=== PATIENT | male | born 1945 | race Caucasian/White ===

== ENCOUNTER 2016-05-10 14:08 | Emergency (ER) | payer MEDICARE, BC ==
[2016-05-10] MEDS ORDERED: Aspirin Low Dose CHEW TAB* 81 MG PO ONE (14:38)
[2016-05-10] MEDS ORDERED: NS 0.9% 1000 ML* 1,000 ML IV SCH (14:45)
[2016-05-10 15:07] LABS: Hematocrit 50 % (42-52); Hemoglobin 16.5 g/dl (14.0-18.0); Mean Corpuscular HGB Conc 33 g/dl (31-36); Mean Corpuscular Hemoglobin 31 pg (27-31); Mean Corpuscular Volume 92 fL (80-94); Mean Platelet Volume 8 um3 (7.4-10.4); Red Blood Count 5.38 10^6/ul (4.0-5.4); Red Cell Distribution Width 14 % (10.5-15); White Blood Count 9.1 10^3/ul (3.5-10.8)
[2016-05-10 15:24] LABS: Albumin 4.4 g/dL (3.2-5.2); BUN/Creatinine Ratio 15.3 (8-20); C Reactive Protein 1.29 mg/L (< 5.00); EGFR African American 77.8 (>60); EGFR Non-African American 60.5 (>60); Globulin 3.7 g/dL (2-4); Potassium 3.7 mmol/L (3.5-5.0); Total Bilirubin 0.9 mg/dL (0.2-1.0); Total Protein 8.1 g/dL (6.4-8.9)
[2016-05-10] MEDS ORDERED: Iodixanol* (CONTRAST) 320 MG/ML 100 ML SDV IV ONE (15:29)
[2016-05-10 15:53] LABS: TSH (Thyroid Stimulating Horm) 1.59 mcIU/mL (0.34-5.60)
--- NOTE | 2016-05-10 16:20 | RAD ---
INDICATION: Chest pain. Short of breath. Evaluate for pulmonary embolus. COMPARISON: Chest x-ray same date; CT chest May 07, 2012 TECHNIQUE: Axial source images were obtained from the thoracic inlet to the hemidiaphragms following administration of [address] angiographic technique was utilized. Coronal and sagittal reconstructed images were acquired. CHEST FINDINGS: Neck/thyroid: The visualized neck to include the thyroid appear normal. Chest wall: There are no acute abnormalities of the bony thorax or chest wall. There is no supraclavicular, infraclavicular, or axillary lymphadenopathy. Lungs : There are no acute pulmonary parenchymal masses or infiltrates. Linear change in right middle lobe and in both lung bases is less likely related to atelectasis and/or scarring. The pulmonary interstitium appears normal. There are no endobronchial lesions. Cardiomediastinal structures: There is no CT evidence of acute pulmonary embolic disease. The heart is normal in size. There is no pericardial effusion. There is no evidence of aortic aneurysm or dissection. There is no mediastinal or hilar adenopathy. The esophagus appears normal. Pleura : There is pleural reactive change of the lobe scarring the right middle lobe. Other: There is a small hiatal hernia.. There is a large calcified gallstone measuring 3 cm IMPRESSION: CHRONIC LUNG FINDINGS. NO CT EVIDENCE OF ACUTE PULMONARY EMBOLIC DISEASE. HIATAL HERNIA. CHOLELITHIASIS.
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
[2016-05-10 20:49] VITALS: BP 138/75
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
== END 2016-05-10 20:49 | disposition home or self-care (01) ==
LOC: ED 14:08 → MEDTELE 18:42 → UNDOADMOB 18:42 → ED 20:49
DX: R07.9 Chest pain, unspecified (principal); E11.8 Type 2 diabetes mellitus with unspecified complications; I45.10 Unspecified right bundle-branch block; E78.5 Hyperlipidemia, unspecified; I12.9 Hypertensive chronic kidney disease with stage 1 through stage 4 chronic kidney disease, or unspecified chronic kidney disease; N18.2 Chronic kidney disease, stage 2 (mild); Z79.82 Long term (current) use of aspirin; Z87.891 Personal history of nicotine dependence
CPT/HCPCS: 36415; 71275; 80053; 82550; 82553; 83605; 83690; 83735; 83880; 84443; 84484; 85025; 85610; 85730; 86140; 93005; A9270-GY; Q9967

== ENCOUNTER 2016-08-15 01:16 | Emergency (ER) | payer MEDICARE, BC ==
[2016-08-15] MEDS ORDERED: Clindamycin CAP* 150 MG PO ONE (05:28)
[2016-08-15 06:07] VITALS: BP 126/73
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
== END 2016-08-15 06:08 | disposition home or self-care (01) ==
LOC: ED 01:16
DX: J32.9 Chronic sinusitis, unspecified (principal); K08.89 Other specified disorders of teeth and supporting structures
CPT/HCPCS: 99282; A9270-GY

== ENCOUNTER 2017-06-19 06:58 | Day surgery (SDC) | payer MEDICARE, BC ==
[~2017-06-19 06:58] MED LIST: Buffered Lidocaine 0.9% SYRIN* 5 ML/SYR SYRINGE INTRADERM ONE; Famotidine IV* 10 MG/ML 2 ML (20 mg) IV ONE
[2017-06-19] MEDS ORDERED: Famotidine IV* 10 MG/ML 2 ML (20 mg) ONE (07:36)
[2017-06-19] MEDS ORDERED: Midazolam* 1 MG/ML 5 ML VIAL (5 MG) ONE (07:52)
[2017-06-19] MEDS ORDERED: fentaNYL* 50 MCG/ML 2 ML VIAL (100 MCG VIAL) ONE ×2 (07:52→09:28)
[2017-06-19] MEDS ORDERED: Bupivacaine 0.25% SDV* 30 ML ONE (08:34)
[2017-06-19] MEDS ORDERED: ceFAZolin 2 GM in 100 MLS NS (*) BAG IVPB ONE (08:56)
[2017-06-19] MEDS ORDERED: Rocuronium* 10 MG/ML VIAL ONE (09:05)
[2017-06-19] MEDS ORDERED: DiMENhydriNATE IV* 50 MG/ML VIAL ONE (09:26)
[2017-06-19] MEDS ORDERED: Ondansetron INJ* 2 MG/ML VIAL ONE (09:26)
[2017-06-19] MEDS ORDERED: Lidocaine 2% PF * 5 ML VIAL ONE (09:26)
[2017-06-19] MEDS ORDERED: Succinylcholine* 20 MG/ML 10 ML VIAL ONE (09:26)
[2017-06-19] MEDS ORDERED: Propofol* 10 MG/ML 20 ML BTL IV PUSH ONE (09:26)
[2017-06-19] MEDS ORDERED: Ketorolac INJ* 30 MG/ML 1 ML VIAL ONE (09:26)
[2017-06-19] MEDS ORDERED: Dexamethasone IV* 4 MG/ML 1 ML (4 MG) ONE (09:26)
[2017-06-19] MEDS ORDERED: oxyCODONE/Acetamin 5/325 MG* TAB PO PRN (09:51)
[2017-06-19] MEDS ORDERED: HYDROmorphone INJ* 1 MG/ML CARPUJECT SYRINGE IV PRN (09:51)
[2017-06-19] MEDS ORDERED: Naloxone* 0.4 MG/ML 1 ML VIAL IV PRN (09:51)
[2017-06-19] MEDS ORDERED: DiMENhydriNATE IV* 50 MG/ML VIAL IV PUSH PRN (09:51)
[2017-06-19] MEDS ORDERED: HYDROmorphone INJ* 1 MG/ML CARPUJECT SYRINGE ONE (10:21)
[2017-06-19 11:48] VITALS: BP 119/65
--- NOTE | 2017-06-20 15:00 | OP ---
CC: Alirio Peterson MD * DATE OF OPERATION: 06/19/17 - [facility] DATE OF : 41 SURGEON: Sandro Mai MD TIME CHECKER: LANDON Garcia ANESTHESIOLOGIST: Dr. Driver. ANESTHESIA: General with local. PRE-OP DIAGNOSIS: Right upper quadrant abdominal pain and gallstones. POST-OP DIAGNOSIS: Right upper quadrant abdominal pain and gallstones. OPERATIVE PROCEDURE: Laparoscopic cholecystectomy. ESTIMATED BLOOD LOSS: Minimal. WOUND CLASSIFICATION: 2. COMPLICATIONS: None. DRAINS: None. SPECIMENS: Gallbladder with large containing gallstone. COMPLICATIONS: None. FINDINGS: The patient had a large 3-3.5 cm gallstone within the gallbladder. There was also some edema in the gallbladder wall . There was also evidence of chronic and acute inflammation of the gallbladder. DESCRIPTION OF PROCEDURE: Written informed consent was obtained, the abdomen was marked with indelible ink, and preoperative antibiotics were administered. The patient was taken to the operative room and placed in the supine position. Sequential compression devices and a warming blanket were applied. General anesthesia was administered. The abdomen was prepped and draped in the usual sterile fashion. Time-out verification was completed. Initially a small vertical incision was made at the midline several fingerbreadths above the umbilicus and the peritoneal cavity was entered under direct vision. A 12-mm blunt port was inserted and the abdomen was insufflated to 15 mmHg. Under direct vision, a 11-mm epigastric port was placed and two 5- mm ports were placed in the right side of the abdominal wall. Upon evaluating the right upper quadrant, it was obvious that there were some omental adhesions to the anterior abdominal wall. These were taken down sharply. These seemed to be independent and not related to the gallbladder, it was not certain if this had been due to a previous inflammatory process or this was a coushatta adhesion pattern. We were then able to identify the gallbladder. It was whitish in color, it was slightly thick walled and it did have a separate portion of omentum and fat adherent to it. We were able to grasp the top of this and with care we were able to sweep the omentum down off the gallbladder where it had been adherent to it. There were findings that the gallbladder was some-what edematous consistent with an acute and then possibly chronic inflammatory process. Down to the infundibular area, there was further edema within the tissue of the peritoneum along the medial and lateral aspects of the gallbladder, it was taken down. I was able to identify the cystic duct and artery as they entered the gall-bladder. I took a significant portion of the inferior part of the gallbladder off the liver bed using cautery through some fairly edematous tissue to assure myself of this anatomy using the critical view technique. The cystic duct was of the expected small caliber. The cystic duct and artery were then doubly clipped and divided. It was obvious that there was a rather large gallstone in the body of the gallbladder which made rasping this somewhat difficult; however, we were able to remove the gallbladder with cautery from the liver bed subsequently without difficulty. The gallbladder was then placed in an EndoCatch bag. The liver bed was irrigated, hemostasis was assured. The omentum was evaluated and there did not appear to be any bleeding. We then removed the gallbladder through the midline incision. It was necessary to make the incision slightly larger and also had to crush the gallbladder, within the gallbladder and the EndoCatch bag to remove this in pieces due to its large size, but we did remove the entire gallbladder along with the stone without spillage. All ports removed under direct vision of the camera. The umbilical fascia was closed with interrupted 0 Vicryl suture. The skin at all 4 incisions was approximated with subcuticular 4-0 Vicryl suture. Steri-Strips and sterile dressings were applied. The patient tolerated the procedure well, was taken to the recovery room in stable condition. [id number]/[facility] #: [id number] FRANK
== END 2017-06-19 12:25 | disposition home or self-care (01) ==
LOC: OR 06:58
PROVIDERS: ATTEND Surgery
DX: K80.10 Calculus of gallbladder with chronic cholecystitis without obstruction (principal); Z87.891 Personal history of nicotine dependence; E11.9 Type 2 diabetes mellitus without complications; Z79.84 Long term (current) use of oral hypoglycemic drugs; I10 Essential (primary) hypertension; F41.9 Anxiety disorder, unspecified; J30.2 Other seasonal allergic rhinitis
CPT/HCPCS: 88304; J0330; J1100; J1170; J1240; J1885; J2250; J2405; J2704; J3010

== ENCOUNTER 2018-10-19 09:16 | Emergency (ER) | payer MEDICARE, BC ==
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
[2018-10-19 09:36] VITALS: BP 129/71
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
== END 2018-10-19 10:55 | disposition home or self-care (01) ==
LOC: UCEAST 09:16
DX: K04.7 Periapical abscess without sinus (principal); S02.5XXA Fracture of tooth (traumatic), initial encounter for closed fracture; X58.XXXA Exposure to other specified factors, initial encounter; Y92.9 Unspecified place or not applicable; Z88.0 Allergy status to penicillin; Z88.1 Allergy status to other antibiotic agents; Z87.891 Personal history of nicotine dependence
CPT/HCPCS: 99212; G0463

== ENCOUNTER 2018-12-31 00:56 | Emergency (ER) | payer MEDICARE, BC ==
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
[2018-12-31 01:48] VITALS: BP 140/79
== END 2018-12-31 01:47 | disposition home or self-care (01) ==
LOC: ED 00:56
DX: K04.7 Periapical abscess without sinus (principal); E11.9 Type 2 diabetes mellitus without complications; Z79.84 Long term (current) use of oral hypoglycemic drugs; Z88.0 Allergy status to penicillin; Z87.891 Personal history of nicotine dependence
CPT/HCPCS: 99282